=== PATIENT | male | born 1990 ===

== ENCOUNTER 2016-09-16 22:21 | Emergency (ER) | payer SELFPAY ==
[~2016-09-16] VITALS: Ht 165.1 cm; Wt 61.3 kg
[2016-09-16 22:28] VITALS: Ht 165.1 cm; Wt 61.3 kg
== END 2016-09-17 01:57 | disposition left against medical advice (07) ==
LOC: FTE 22:21
DX: Z53.21 Procedure and treatment not carried out due to patient leaving prior to being seen by health care provider (principal)